=== PATIENT | female | born 1935 | race Caucasian/White ===

== ENCOUNTER 2016-04-28 21:51 | Observation (INO) | payer OTHER ==
[2016-04-28] MEDS ORDERED: VANCOMYCIN HCL/NORMAL SALINE 250 ML IV ONE (22:40)
[2016-04-28 23:09] LABS: % IMMATURE GRANULYOCYTES 0.4 % (0.0-1.1); ABSOLUTE IMMATURE GRANULOCYTES 0.03 10^3/uL (0.00-0.10); ADD DIFF? NO; ADD MORPH? NO; ADD SCAN? NO; ATYPICAL LYMPHOCYTE FLAG 0 (0-99); FRAGMENT RBC FLAG 0 (0-99); HEMATOCRIT 37.9 % (38.0-47.0); HEMOGLOBIN 12.6 g/dL (12.6-16.3); LEFT SHIFT FLG 0 (0-99); LIPEMIA HEMOLYSIS FLAG 80 (0-99); MEAN CELL HEMOGLOBIN 30.7 pg (27.9-34.1); MEAN CELL HEMOGLOBIN CONCENTR. 33.2 g/dL (32.4-36.7); MEAN CELL VOLUME 92.4 fL (81.5-99.8); MEAN PLATELET VOLUME 10.4 fL (8.7-11.7); PLATELET CLUMPS FLAG 0 (0-99); PLATELET COUNT 278 10^3/uL (150-400)
[2016-04-28 23:21] LABS: SEDIMENTATION RATE 11 MM/HR (0-30)
--- NOTE | 2016-04-28 23:23 | DX ---
2 views left foot Reason for examination: Redness and swelling postoperatively in a 80-year-old female. No previous joe t films are available for comparison. FINDINGS: 6 orthopedic screws are positioned traversing metatarsals and tarsals in the medial left fo ot. 3 screws are also seen positioned in the talus. No definite acute abnormality is seen. Sclerosis of the fifth metatarsal is noted. Erosive degenerative changes are noted involving the proximal inter phalangeal joint of the fourth toe with less prominent degenerative changes seen involving other inte rphalangeal joints. IMPRESSION: Extensive postoperative changes are noted. No definite acute abnormality is seen with dir ect comparison with previous studies suggested if they are available. A preliminary report was called to the Emergency Department.
[2016-04-28 23:30] LABS: ANION GAP 12 mEq/L (8-16); C-REACTIVE PROTEIN 7.4 mg/L (<10.0); CALCIUM 8.6 mg/dL (8.5-10.4); CARBON DIOXIDE 24 mEq/l (22-31); CHLORIDE 106 mEq/L (97-110); CREATININE 1.7 mg/dL (0.6-1.0); GLOMERULAR FILTRATION RATE 29; GLUCOSE 108 mg/dL (70-100); SODIUM 142 mEq/L (134-144)
--- NOTE | 2016-04-28 23:51 | EDPHY ---
H & P Stated Complaint: LEFT FOOT POSS INFECTION S/P SURGERY IN MAR Source: Patient, Family Exam Limitations: No limitations - Personal History Current Tetanus/Diphtheria Vaccine: Yes Current Tetanus Diphtheria and Acellular Pertussis (TDAP): Yes - Medical/Surgical History Hx Asthma: No Hx Chronic Respiratory Disease: No Hx Diabetes: No Hx Cardiac Disease: No Hx Renal Disease: No Hx Cirrhosis: No Hx Alcoholism: No Hx HIV/AIDS: No Hx Splenectomy or Spleen Trauma: No Other PMH: HTN, HYPERCHOLESTEROL, HYPOTHYROID, - Social History Smoking Status: Former smoker HPI/ROS: CHIEF COMPLAINT: Left foot pain HISTORY OF PRESENT ILLNESS: patient complains of several days of left foot pain , redness and possible infection of the surgical incision. Surgery was done on March 10. She does not know the actual name of the procedure she says "he rebuilt my foot." there is a large surgical incision on the medial aspect of the foot. She complains of increasing redness, pain and swelling. Difficulty ambulating due to pain. Pain radiates up to the foot but not into the leg or calf. There is no erythema or edema of the leg or calf. No chest pain or shortness of breath. No fever chills. Pain is worse with palpation and weight- bearing. Improved at rest. No other associated complaints or modifying factors. REVIEW OF SYSTEMS: Ten systems reviewed and are negative unless otherwise noted in the HPI EXAMINATION General Appearance: Alert, no distress Head: normocephalic, atraumatic Eyes: Pupils equal and round, no conjunctival pallor or injection ENT, Mouth: Mucous membranes moist Neck: Normal inspection, supple, non-tender Respiratory: Lungs are clear to auscultation Cardiovascular: Regular rate and rhythm Gastrointestinal: Abdomen is soft and nontender Back: non-tender, no bony abnormalities Neurological: A&O, nonfocal, normal gait Skin: Warm and dry. Surgical incision on the left medial aspect of the foot. The incision is intact, but there is significant erythema and single blister over the incision. No dehiscence or purulent. Exquisitely tender to palpation. Extremities: Left foot exquisite tender to palpation on the medial aspect. No crepitus. There is range of motion about the foot is intact but painful. No tenderness of the distal flores. No tenderness of the calf. No edema of the calf. DIFFERENTIAL DIAGNOSES: Including but not limited to : Osteomyelitis, cellulitis, superficial cellulitis, incisional dehiscence, infected orthopedic hardware MDM: 11:50 p.m. erythema with significant tenderness pain of the left foot. This is over the area of surgical incision. The pain is significant to the patient, but her laboratory studies are stable. X-rays 2 difficult to be read by the Radiology given the significant hardware in place. I have placed a page out to the surgeon to discuss the case. Plan for admission 11:56 p.m. I have discussed the case with the on-call physician Dr. Gordon, he will admit the patient for further care. No further orders from him at this time. The patient has been informed of this and she is comfortable with this plan. She is admitted in stable condition. SUPERVISION:Patient was evaluated in conjunction with the supervising physician. Please see their note for details. (Dandre Bonilla) Constitutional: Initial Vital Signs Temperature (C) 37.0 C 04/28/16 21:59 Heart Rate 66 04/28/16 21:59 Respiratory Rate 18 04/28/16 21:59 Blood Pressure 172/72 H 04/28/16 21:59 O2 Sat (%) 94 04/28/16 21:59 O2 Delivery Mode Room Air Allergies/Adverse Reactions: azithromycin [From Zithromax] Allergy (Intermediate, Verified 04/28/16 22:03) severe diarrhea Home Medications: Medication Instructions Recorded Furosemide [Lasix 20 MG (*)] 20 mg PO DAILY 05/06/13 Levothyroxine [Synthroid 88 mcg 88 mcg PO DAILY06 05/06/13 (*)] Nebivolol HCl [Bystolic 10 mg] 15 mg PO DAILY 05/06/13 Omeprazole [Prilosec 20 mg] 20 mg PO DAILY 05/06/13 Potassium Cl [Klor-Con 10 meq (RX)] 10 meq PO DAILY 05/06/13 Simvastatin [Zocor 10 mg] 10 mg PO HS 05/06/13 Cephalexin [Keflex (*)] 250 mg PO Q6HRS #30 cap 04/29/16 Denosumab [Prolia] 60 mg SQ .[id number] 04/29/16 Herbals/Supplements -Info Only 1 ea PO DAILY 04/29/16 Hydrocodone/APAP 5/325 [[place] 1 - 2 tab PO Q4 PRN #0 tab 04/29/16 5/325 (*)] Mv-Mn/FA/Vit K/Lycop/Lut/Zeaxa 1 each PO DAILY 04/29/16 [Ocuvite Eye + Multi Tablet] - Data Points Laboratory Results: Laboratory Results 04/28/16 22:55 04/28/16 22:55 Medications Given: Discontinued Medications Acetaminophen/Hydrocodone Bitart ([place] 5/325) 1 - 2 tab PO Q4 PRN PRN Reason: Pain, Moderate Able to Take PO Stop: 05/09/16 06:37 Last Admin: 04/29/16 08:40 Dose: 0.5 tab Vancomycin/Sodium Chloride (Vancomycin 1 Gm (Premix)) 250 mls @ 250 mls/hr IV EDNOW ONE PRN Reason: Protocol Stop: 04/28/16 23:39 Last Admin: 04/28/16 23:06 Dose: 250 mls Departure - Departure Disposition: [facility] Inpatient Acute Clinical Impression: Cellulitis of foot Condition: Good
[2016-04-29 04:46] VITALS: O2SAT 94
[2016-04-29] MEDS ORDERED: HYDROCODONE/APAP 5/325 TAB PO PRN (06:38)
[2016-04-29 08:06] VITALS: BP 142/67; PULSE 70; RESP 12; TEMP 97.9
[2016-04-29] MEDS ORDERED: CEPHALEXIN 250 MG CAP PO SCH (12:00)
--- NOTE | 2016-04-29 12:54 | GHP ---
[f rep st] HISTORY AND PHYSICAL DATE OF ADMISSION: 04/28/2016 CURRENT COMPLAINT: Left foot pain. HISTORY OF PRESENT ILLNESS: This is a 80-year-old female who had previously undergone a left foot re construction with Dr. Page approximately 6 weeks ago. She is still nonweightbearing. She develope d some redness and pain and states she had some oozing from the incision last night before going to b ed. She was seen in the emergency room. She was admitted by the ER to rule out infection. I was as ked to see the patient for further admission. PAST MEDICAL HISTORY: The patient has no significant medical problems other than high blood pressure , high cholesterol, and low thyroid. SOCIAL HISTORY: She is a former smoker. MEDICATIONS: Include furosemide, levothyroxine, nebivolol, omeprazole, potassium, simvastatin. ALLERGIES: She is allergic to azithromycin. PHYSICAL EXAM: HEENT: Patient's pupils are equal, round, and reactive to light. CHEST: Clear to a uscultation. HEART: Regular rate and rhythm. ABDOMEN: Soft and nontender. EXTREMITIES: Left joe t has some mild tenderness noted in the medial portion of the foot with some redness noted around the area. No gross purulence noted. She has limited range of motion secondary to her fusion. LABORATORY FINDINGS: X-ray exam reveals well-placed hardware with no evidence of loosening or fractu re. Labs revealed her to have not an elevated white count. She is also noted to have a normal C-reactive protein and a normal sed rate, suggesting she does not have an infection. ASSESSMENT AND PLAN: Patient is status post left foot cellulitis. She is to be placed on antibiotic s. She would like to go home, however, today, on Sunday. She was not placed on any IV antibiotics upon leaving the emergency room. She will therefore be placed on p.o. antibiotics, allowed to go ho me but have a low threshold for contacting us if she gets increasing redness. She will follow up in the office at the beginning of this coming week. /[id number]/MODL
== END 2016-04-29 13:00 | disposition home or self-care (01) ==
LOC: INTOOBSV 23:55 → F3N 04-29 02:03
PROVIDERS: ADMIT Orthopaedic Surgery; ATTEND Orthopaedic Surgery
DX: L03.116 Cellulitis of left lower limb (principal); I10 Essential (primary) hypertension; E78.00 Pure hypercholesterolemia, unspecified; E03.9 Hypothyroidism, unspecified; Z87.891 Personal history of nicotine dependence; Z98.890 Other specified postprocedural states
CPT/HCPCS: 73620; 96374; 99285; G0378; J3370

== ENCOUNTER → 2016-05-08 | Outpatient (CLI) | payer OTHER | LOC: BHFA 13:15 | PROVIDERS: ATTEND Internal Medicine Cardiovascular Disease | DX: I10 Essential (primary) hypertension (principal); E78.5 Hyperlipidemia, unspecified ==

== ENCOUNTER → 2016-05-18 | Outpatient (CLI) | payer OTHER ==
--- NOTE | 2016-05-18 18:17 | DX ---
Chest, PA and Lateral Upright Views, at 5:00 PM Clinical History: 81-year-old female with a cough and a fever for 5 days. The patient has a prior rem ote tobacco use history. Comparison Study: Chest, dated 06/29/2014. Findings: The lungs remain hyperexpanded with some attenuation of the upper lobe vasculature, consist ent with underlying COPD. There is central peribronchial wall thickening, consistent with a bronchiti s. 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 There is no convincing new focal alveolar consolidatio n. There is some osseous superimposition at the posterior costophrenic angles, with no convincing tiffany dence of a pleural effusion. The patient's arms obscure the anterior and central mediastinal structur es on the lateral view. The osseous structures are age-appropriate. The trachea is midline. Costochon dral calcifications are noted over the lower portion of the rib cage. I reviewed the above findings with Dr. Jorge L Castillo at 5:20 PM on 05/18/2016. Impression: COPD with perihilar bronchitis and chronic biapical pleural fibrosis, but no convincing a cute focal infiltrate.
== END ==
LOC: CIMAGING 16:58
PROVIDERS: ATTEND Internal Medicine
DX: J44.9 Chronic obstructive pulmonary disease, unspecified (principal); J40 Bronchitis, not specified as acute or chronic; Z87.891 Personal history of nicotine dependence; J94.1 Fibrothorax; R05 Cough
CPT/HCPCS: 71020; G0463

== ENCOUNTER → 2016-06-15 | Outpatient (CLI) | payer OTHER | LOC: CIMAGING 11:12 | PROVIDERS: ATTEND Internal Medicine | DX: R61 Generalized hyperhidrosis (principal); R05 Cough; K44.9 Diaphragmatic hernia without obstruction or gangrene; I25.10 Atherosclerotic heart disease of native coronary artery without angina pectoris | CPT/HCPCS: 71250-PO ==

== ENCOUNTER 2016-07-14 12:18 | Emergency (ER) | payer OTHER ==
--- NOTE | 2016-07-14 12:33 | EDPHY ---
H & P - Medical/Surgical History Hx Asthma: No Hx Chronic Respiratory Disease: No Hx Diabetes: No Hx Cardiac Disease: No Hx Renal Disease: No Hx Cirrhosis: No Hx Alcoholism: No Hx HIV/AIDS: No Hx Splenectomy or Spleen Trauma: No Other PMH: HTN, HYPERCHOLESTEROL, HYPOTHYROID, left foot surgery Mar 2016, right foot surgery Apr 2015 - Social History Smoking Status: Former smoker Time Seen by Provider: 07/14/16 12:28 HPI/ROS: CHIEF COMPLAINT: Right wrist pain HISTORY OF PRESENT ILLNESS: 81-year-old female arrives via ambulance, not a trauma activation, no history of anticoagulant use, [id number] , after she sustained a mechanical fall while in her garden. She was caring a large glass picture, tripped and fell under outstretched right hand. The glass broke. She sustained 2 large lacerations to the right wrist ulnar aspect. She is complaining of wrist pain, decreased sensation to the right pinky of digit. Denies proximal injury. Denies head injury. Complaining of right knee abrasion and injury. PRIMARY CARE PROVIDER: Leon Allen REVIEW OF SYSTEMS: A ten point review of systems was performed and is negative with the exception of the items mentioned in the HPI PAST MEDICAL/SURGICAL HISTORY: no anticoagulant use, chronic kidney disease SOCIAL HISTORY: denies alcohol use at time of incident PHYSICAL EXAM 1) GENERAL: Well-developed, well-nourished, alert and oriented. Appears to be in no acute distress. Answering questions appropriately. 2) HEAD: Normocephalic, atraumatic 3) HEENT: Pupils equal, round, reactive to light bilaterally. Negative Horners. Nasopharynx, oropharynx, clear. No deformity or angulation of nose. No septal hematoma. No rhinorrhea. No oral trauma. Ears bilaterally with normal tympanic membranes. No hemotympanum. No fluid or blood in the external auditory canal. No raccoon eyes. No Powell sign. 4) NECK: No cervical collar is on. Posterior cervical spine is nontender, no stepoff, no effusion. Full range of motion which does not elicit any midline cervical spine pain, no posterior midline tenderness, no step-off. 5) LUNGS: Clear to auscultation bilaterally, no wheezes, no rhonchi, no retractions. No obvious signs of trauma. No chest wall pain. No flaring, no grunting. Moving symmetrically. No crepitus. 6) HEART: Regular rate and rhythm, 7) ABDOMEN: No guarding, no rebound, no focal tenderness, no peritoneal signs, no signs of trauma, no ecchymosis 8) MUSCULOSKELETAL: Right upper extremity: Pre-hospital splint in place, removed, revealing 2 discrete 4 cm lacerations, tender to palpation distal radius, well demarcated, linear on the volar-ulnar aspect of the right wrist. The proximal laceration involves the muscle belly and flexor tendon. Decreased flexor function digits 3 , 4, 5. Multiple pieces of glass are palpated with a needle tip. decreased sensation ulnar nerve distribution. In addition start to discrete 2.5 cm lacerations Right lower extremity: Right anterior knee abrasion with mild patellar tenderness. No gross instability. Proximally distally nontender. Otherwise, remainder musculoskeletal examination is unremarkable no focal areas of tenderness. 9) BACK:No midline vertebral tenderness, no fluctuance, no step-off, no obvious trauma, no visual or palpable abnormality. 10) SKIN: Right forearm laceration x 2 DIFFERENTIAL DIAGNOSIS: in no particular include but limited to closed radius fracture, open radiusfracture, patellar fracture (Juan Carlos,Rao Ana) Constitutional: Initial Vital Signs Temperature (C) 36.6 C 07/14/16 12:18 Heart Rate 77 07/14/16 12:18 Respiratory Rate 16 07/14/16 12:18 Blood Pressure 133/74 H 07/14/16 12:18 O2 Sat (%) 96 07/14/16 12:18 O2 Delivery Mode Room Air Allergies/Adverse Reactions: azithromycin [From Zithromax] Allergy (Intermediate, Verified 04/28/16 22:03) severe diarrhea Home Medications: Medication Instructions Recorded Furosemide [Lasix 20 MG (*)] 20 mg PO DAILY 05/06/13 Levothyroxine [Synthroid 88 mcg 88 mcg PO DAILY06 05/06/13 (*)] Nebivolol HCl [Bystolic 10 mg] 15 mg PO DAILY 05/06/13 Omeprazole [Prilosec 20 mg] 20 mg PO DAILY 05/06/13 Potassium Cl [Klor-Con 10 meq (RX)] 10 meq PO DAILY 05/06/13 Simvastatin [Zocor 10 mg] 10 mg PO HS 05/06/13 Cephalexin [Keflex (*)] 250 mg PO Q6HRS #30 cap 04/29/16 Denosumab [Prolia] 60 mg SQ .[id number] 04/29/16 Herbals/Supplements -Info Only 1 ea PO DAILY 04/29/16 Hydrocodone/APAP 5/325 [[place] 1 - 2 tab PO Q4 PRN #0 tab 04/29/16 5/325 (*)] Mv-Min/FA/Vit K/Lycop/Lut/Zeax 1 each PO DAILY 04/29/16 [Ocuvite Eye + Multi Tablet] Cephalexin [Keflex] 500 mg PO QID 5 Days 07/14/16 Hydrocodone/APAP 5/325 [[place] 1 tab PO Q6 PRN #10 tab 07/14/16 5/325 (RX)] ED Images - Extremities Full Arm Front Right: 1 - lac #1 2 - lac #2 Medical Decision Making - Diagnostics Imaging: Imaging Impressions Wrist X-Ray 07/14/16 12:33 Impression: 1. Soft tissue swelling/laceration with radiopaque foreign objects overlying the distal forearm. 2. Additional findings as above. Knee X-Ray 07/14/16 12:34 Impression: No acute osseous findings. Images reviewed by myself (Rao Rangel) Procedures: Procedure: Laceration repair. I explained the indications, risks and benefits for both laceration repair and anesthetic administration. Verbal consent was obtained from the patient . The laceration on the right forearm was anesthetized using 0.5% bupivicaine with epinephrine . After anesthetic administered the patient was observed for a period of time and had no apparent adverse effects. The wound was cleaned, prepped, draped in normal sterile fashion and explored to its base. No foreign body seen, no foreign bodies palpated. There were deep structures involved. The distal laceration was closed with running suture of 4 0 Prolene, the proximal 4 cm laceration closed with 9 simple interrupted 4 0 Prolene sutures. The 2, 2.5 cm lacerations closed with running suture of 4 0 Prolene. Overall, wound repair was complex. The procedure was performed by myself. Patient has been informed that scarring will occur, although efforts have been made to minimize this. Procedure: Splint Volar sugar-tong splint and sling was applied by ER maintenance department technician. After application of the splint I returned and re-examined the patient. The splint was adequately immobilizing the joint and distal to the splint the patient's circulation and sensation were intact. Patient shows no signs of compartment syndrome. Was given orthopedic precautions. (Rao Rangel) ED Course/Re-evaluation: 1:00 p.m.: Patient has a deep laceration to her volar forearm ulnar aspect involving the muscle belly and flexor tendon. Will contact hand surgery. IV antibiotics ordered. Last oral intake was last night. 1:06 p.m.: Phone consultation with on-call hand surgery Dr. Edwin Hughes, explained the xray and clinical findings including possible ulnar nerve injury, possible complete transaction of muscle and possible flexor muscle injury/ transection. He recommended irrigation, primary wound closure, splinting, follow up in office on Sunday or Sunday (today is Sunday) as this will more than likely necessitate further wound exploration. (Rao Rangel) Other Provider: I evaluated and participated in the management of the patient. I also evaluated the patient independently. My co-signature indicates that I have reviewed this chart and I agree with the findings and plan of care as documented. My personal H&P findings include: The patient presents to the ED with a complex laceration to her right forearm. The patient is noted to have some decreased sensation along the right 5th finger consistent with an ulnar neurapraxia. The patient also has a deep laceration to her right forearm going through 1 of the flexor muscle bellies. The patient does have gross movement noted in her fingers but does have decreased strength with finger flexion. The case was discussed with Dr. Edwin Hughes on-call for Hand Orthopedic surgery who has requested the superficial skin layer be closed in the emergency department. He would like to see the patient in follow-up in his office in the next 2-3 days. The patient has been informed that exploration may be required for definitive repair of her wounds. (Salo Singh) - Data Points Laboratory Results: Laboratory Results 07/14/16 13:08 07/14/16 13:08 07/14/16 07/14/16 07/14/16 13:08 13:08 13:08 WBC 7.85 10^3/uL 10^3/uL (3.80-9.50) RBC 4.50 10^6/uL 10^6/uL (4.18-5.33) Hgb 13.4 g/dL g/dL (12.6-16.3) Hct 40.2 % % (38.0-47.0) MCV 89.3 fL fL (81.5-99.8) MCH 29.8 pg pg (27.9-34.1) MCHC 33.3 g/dL g/dL (32.4-36.7) RDW 14.5 % % (11.5-15.2) Plt Count 301 10^3/uL 10^3/uL (150-400) MPV 10.2 fL fL (8.7-11.7) Neut % (Auto) 69.3 % % (39.3-74.2) Lymph % (Auto) 14.8 % L % (15.0-45.0) [place] % (Auto) 11.6 % % (4.5-13.0) Eos % (Auto) 2.4 % % (0.6-7.6) Baso % (Auto) 1.5 % % (0.3-1.7) Nucleat RBC Rel Count 0.0 % % (0.0-0.2) Absolute Neuts (auto) 5.44 10^3/uL 10^3/uL (1.70-6.50) Absolute Lymphs (auto) 1.16 10^3/uL 10^3/uL (1.00-3.00) Absolute Monos (auto) 0.91 10^3/uL H 10^3/uL (0.30-0.80) Absolute Eos (auto) 0.19 10^3/uL 10^3/uL (0.03-0.40) Absolute Basos (auto) 0.12 10^3/uL H 10^3/uL (0.02-0.10) Absolute Nucleated RBC 0.00 10^3/uL 10^3/uL (0-0.01) Immature Gran % 0.4 % % (0.0-1.1) Immature Gran # 0.03 10^3/uL 10^3/uL (0.00-0.10) PT 13.3 SEC SEC (12.0-15.0) INR 1.02 (0.83-1.16) APTT 31.6 SEC SEC (23.0-38.0) Sodium 146 mEq/L H mEq/L (134-144) Potassium 3.9 mEq/L mEq/L (3.5-5.2) Chloride 106 mEq/L mEq/L (97-110) Carbon Dioxide 23 mEq/l mEq/l (22-31) Anion Gap 17 mEq/L H mEq/L (8-16) BUN 18 mg/dL mg/dL (7-23) Creatinine 1.4 mg/dL H mg/dL (0.6-1.0) Estimated GFR 36 Glucose 92 mg/dL mg/dL (70-100) Calcium 10.1 mg/dL mg/dL (8.5-10.4) Medications Given: Discontinued Medications Cefazolin Sodium/Dextrose (Ancef 1 Gm (Premix)) 50 mls @ 200 mls/hr IV EDNOW ONE PRN Reason: Protocol Stop: 07/14/16 13:14 Last Admin: 07/14/16 13:15 Dose: 50 mls Ketorolac Tromethamine (Toradol) 30 mg IVP EDNOW ONE Stop: 07/14/16 13:14 Last Admin: 07/14/16 13:54 Dose: Not Given Morphine Sulfate (Morphine) 2 mg IVP EDNOW ONE Stop: 07/14/16 13:17 Last Admin: 07/14/16 13:30 Dose: 2 mg Departure - Departure Disposition: Home, Routine, Self-Care Clinical Impression: Abrasion, right knee, initial encounter Qualifiers: Encounter type: initial encounter Qualified Code(s): S80.211A - Abrasion, right knee, initial encounter Laceration of right forearm with tendon involvement Qualifiers: Encounter type: initial encounter Qualified Code(s): S51.811A - Laceration without foreign body of right forearm, initial encounter Condition: Good Instructions: Laceration (ED), Abrasion (ED) Additional Instructions: Return to the ER if you develop redness, swelling, discharge, warmth to the wound, red streaks going up your arm, or any other symptoms that concern you. Referrals: Edwin Hughes MD [Medical Doctor] - 07/17/16 (Dr. Edwin Hughes is an orthopedic/hand surgeon) Prescriptions: Cephalexin [Keflex] 500 mg PO QID 5 Days Hydrocodone/APAP 5/325 [[place] 5/325 (RX)] 1 tab PO Q6 PRN #10 tab PRN Reason: Pain, Severe
[2016-07-14] MEDS ORDERED: KETOROLAC 30 MG/1 ML SDV IVP ONE (13:13)
[2016-07-14 13:15] LABS: % IMMATURE GRANULYOCYTES 0.4 % (0.0-1.1); ABSOLUTE IMMATURE GRANULOCYTES 0.03 10^3/uL (0.00-0.10); ADD DIFF? NO; ADD MORPH? NO; ADD SCAN? NO; ATYPICAL LYMPHOCYTE FLAG 10 (0-99); FRAGMENT RBC FLAG 0 (0-99); HEMATOCRIT 40.2 % (38.0-47.0); HEMOGLOBIN 13.4 g/dL (12.6-16.3); LEFT SHIFT FLG 0 (0-99); LIPEMIA HEMOLYSIS FLAG 80 (0-99); MEAN CELL HEMOGLOBIN 29.8 pg (27.9-34.1); MEAN CELL HEMOGLOBIN CONCENTR. 33.3 g/dL (32.4-36.7); MEAN CELL VOLUME 89.3 fL (81.5-99.8); MEAN PLATELET VOLUME 10.2 fL (8.7-11.7); PLATELET CLUMPS FLAG 10 (0-99); PLATELET COUNT 301 10^3/uL (150-400); RED CELL DISTRIBUTION WIDTH 14.5 % (11.5-15.2)
[2016-07-14 13:28] LABS: APTT 31.6 SEC (23.0-38.0); INR 1.02 (0.83-1.16); PROTIME(PATIENT) 13.3 SEC (12.0-15.0)
[2016-07-14 13:35] LABS: CALCIUM 10.1 mg/dL (8.5-10.4); CARBON DIOXIDE 23 mEq/l (22-31); CHLORIDE 106 mEq/L (97-110); CREATININE 1.4 mg/dL (0.6-1.0); GLOMERULAR FILTRATION RATE 36; GLUCOSE 92 mg/dL (70-100); SODIUM 146 mEq/L (134-144)
[2016-07-14 13:44] LABS: ANION GAP 17 mEq/L (8-16); POTASSIUM 3.9 mEq/L (3.5-5.2)
[2016-07-14 14:13] VITALS: RESP 15
[2016-07-14 15:15] VITALS: BP 138/78; PULSE 61; TEMP 98.1; O2SAT 95
== END 2016-07-14 15:10 | disposition home or self-care (01) ==
LOC: EDUNIT#
PROC: 0HQDXZZ Repair Right Lower Arm Skin, External Approach (ICD-10-PCS; principal; 2016-07-14)
DX: S51.811A Laceration without foreign body of right forearm, initial encounter (principal); S80.211A Abrasion, right knee, initial encounter; I10 Essential (primary) hypertension; Z87.891 Personal history of nicotine dependence; W25.XXXA Contact with sharp glass, initial encounter
CPT/HCPCS: 12002; 73110; 73564; 96374; 96375; 99284; A4565; J0690

== ENCOUNTER → 2016-11-03 | Outpatient (CLI) | payer OTHER | LOC: FIMAGING 15:20 | PROVIDERS: ATTEND Internal Medicine | DX: R27.0 Ataxia, unspecified (principal); R29.6 Repeated falls ==

== ENCOUNTER → 2016-12-14 | Outpatient (CLI) | payer OTHER | LOC: BHFA 10:30 | PROVIDERS: ATTEND Internal Medicine Cardiovascular Disease | DX: I49.9 Cardiac arrhythmia, unspecified (principal) ==

== ENCOUNTER → 2016-12-25 | Outpatient (CLI) | payer OTHER | LOC: CIMAGING 09:02 | PROVIDERS: ATTEND Internal Medicine | DX: Z03.89 Encounter for observation for other suspected diseases and conditions ruled out (principal) | CPT/HCPCS: 73590-PO ==

== ENCOUNTER → 2017-02-01 | Outpatient (CLI) | payer OTHER | LOC: CIMAGING 13:54 | PROVIDERS: ATTEND Internal Medicine | DX: R07.81 Pleurodynia (principal); W19.XXXD Unspecified fall, subsequent encounter; Z87.81 Personal history of (healed) traumatic fracture; K80.20 Calculus of gallbladder without cholecystitis without obstruction | CPT/HCPCS: 71101; 71250; G0463 ==

== ENCOUNTER → 2017-04-26 | Outpatient (CLI) | payer OTHER | LOC: CIMAGING 16:31 | PROVIDERS: ATTEND Internal Medicine | DX: J44.1 Chronic obstructive pulmonary disease with (acute) exacerbation (principal) | CPT/HCPCS: 71046-PO ==

== ENCOUNTER → 2017-07-20 | Outpatient (CLI) | payer OTHER | LOC: FIMAGING 12:52 | PROVIDERS: ATTEND Internal Medicine Rheumatology | DX: Z13.820 Encounter for screening for osteoporosis (principal); M85.89 Other specified disorders of bone density and structure, multiple sites ==

== ENCOUNTER → 2017-08-09 | Outpatient (CLI) | payer OTHER | LOC: FIMAGING 10:18 | PROVIDERS: ATTEND Internal Medicine | DX: N18.9 Chronic kidney disease, unspecified (principal); R33.9 Retention of urine, unspecified ==

== ENCOUNTER → 2017-12-27 | Outpatient (CLI) | payer OTHER | LOC: CIMAGING 08:51 | PROVIDERS: ATTEND Internal Medicine | DX: S20.211A Contusion of right front wall of thorax, initial encounter (principal); R91.1 Solitary pulmonary nodule | CPT/HCPCS: 71101-PO; 71250-PO ==